=== PATIENT | female | born 1990 | race African-American/Black ===

== ENCOUNTER 2017-09-04 06:40 | Day surgery (SDC) | payer MEDICAID ==
[~2017-09-04] VITALS: Ht 167.6 cm; Wt 93.2 kg
[~2017-09-04 06:40] MED LIST: MOXIFLOXACIN HCL 0.5% 3 ML OPHTHALMIC SOLUTION ONE; RINGERS SOLUTION,LACTATED 500 ML IV ONE
[2017-09-04] MEDS: MOXIFLOXACIN HCL 0.5% 3 ML OPHTHALMIC SOLUTION OD SCH ×3 (07:21→07:31)
== END 2017-09-04 09:05 | disposition home or self-care (01) ==
LOC: SURGERY 06:40
PROVIDERS: ATTEND Ophthalmology
DX: H11.051 Peripheral pterygium, progressive, right eye (principal); Z53.8 Procedure and treatment not carried out for other reasons; Z88.3 Allergy status to other anti-infective agents; Z91.013 Allergy to seafood; Z87.891 Personal history of nicotine dependence; Z72.89 Other problems related to lifestyle; Z98.890 Other specified postprocedural states
CPT/HCPCS: 84703; J7120

== ENCOUNTER 2017-10-30 06:33 | Day surgery (SDC) | payer MEDICAID ==
[~2017-10-30] VITALS: Ht 170.2 cm; Wt 93.2 kg
[~2017-10-30 06:33] MED LIST changes: -MOXIFLOXACIN HCL 0.5% 3 ML OPHTHALMIC SOLUTION ONE
[2017-10-30] MEDS ORDERED: MIDAZOLAM HCL 2 MG/2 ML VIAL IVP ONE (06:34)
[2017-10-30] MEDS ORDERED: FentaNYL CITRATE-PF 100 MCG/2 ML VIAL IVP ONE (06:34)
[2017-10-30] MEDS ORDERED: RINGERS SOLUTION,LACTATED 500 ML IV ONE (06:43)
[2017-10-30] MEDS ORDERED: MOXIFLOXACIN HCL 0.5% 3 ML OPHTHALMIC SOLUTION ONE (06:44)
[2017-10-30] MEDS: MOXIFLOXACIN HCL 0.5% 3 ML OPHTHALMIC SOLUTION OD SCH ×3 (07:30→07:39)
[2017-10-30] MEDS ORDERED: MitoMYcin 0.2 MG/VIAL KIT FOR OPHTHALMIC USE OD ONE (07:30)
[2017-10-30] MEDS ORDERED: MethylPREDNISolone SOD SUCC 40 MG/ML VIAL ONE (08:59)
[2017-10-30] MEDS ORDERED: SOD BORATE/BORIC AC/WATER/NACL 118 ML BOTTLE OD ONE (09:00)
[2017-10-30] MEDS ORDERED: LIDOCAINE HCL 2%/EPI 1:200,000/PF 20 ML VIAL ONE (09:00)
[2017-10-30] MEDS ORDERED: NEOMYCIN/POLYMYXIN B/DEXAMETH 3.5 GM OPHTHALMIC OINTMENT ONE (09:00)
[2017-10-30] MEDS ORDERED: TETRACAINE HCL VISCOUS 0.5% 0.6 ML OPHTHALMIC SOLUTION ONE (09:00)
[2017-10-30] MEDS ORDERED: BUPIVACAINE HCL/PF 0.75% 10 ML VIAL ONE (09:01)
[2017-10-30] MEDS ORDERED: SODIUM CHLORIDE 0.9% 10 ML ONE (09:02)
[2017-10-30] MEDS ORDERED: TETRACAINE HCL/PF 0.5% 4 ML OPHTHALMIC SOLUTION ONE (09:28)
[2017-10-30] MEDS ORDERED: ACETAMINOPHEN 1000 MG/ISO-OSM 100 ML IV ONE (10:10)
[2017-10-30] MEDS ORDERED: OxyCODONE HCL/ACETAMINOPHEN 10-325 MG TABLET PO ONE (11:00)
== END 2017-10-30 11:15 | disposition home or self-care (01) ==
LOC: SURGERY 06:33
PROVIDERS: ATTEND Ophthalmology
DX: H11.051 Peripheral pterygium, progressive, right eye (principal); E66.9 Obesity, unspecified; Z72.89 Other problems related to lifestyle; Z91.013 Allergy to seafood; Z68.32 Body mass index [BMI] 32.0-32.9, adult; Z88.3 Allergy status to other anti-infective agents; Z87.891 Personal history of nicotine dependence; Z98.890 Other specified postprocedural states
CPT/HCPCS: 65426; 84703; 88304; J0131; J0690; J2250; J3010; J3490; J7120; J2920

== ENCOUNTER 2024-03-04 17:37 | Emergency (ER) | payer MEDICAID, OTHER ==
[~2024-03-04] VITALS: Ht 167.6 cm; Wt 104.5 kg
[2024-03-04] MEDS ORDERED: ETON68IM4 SD (17:46)
[2024-03-04] MEDS: LIDOCAINE 1% 10 ML VIAL ID ONE (19:20)
[2024-03-04] MEDS: BACITRACIN 0.9 GM PACKET OINTMENT TP ONE (19:52)
[2024-03-04 20:23] VITALS: BP 119/75; PULSE 69; RESP 18; TEMP 98.3; O2SAT 99
== END 2024-03-04 20:35 | disposition home or self-care (01) ==
LOC: EMS 17:37
DX: S61.211A Laceration without foreign body of left index finger without damage to nail, initial encounter (principal); F17.210 Nicotine dependence, cigarettes, uncomplicated; Z88.8 Allergy status to other drugs, medicaments and biological substances; Z91.041 Radiographic dye allergy status; Z91.013 Allergy to seafood; W26.0XXA Contact with knife, initial encounter; Y93.89 Activity, other specified; Y92.89 Other specified places as the place of occurrence of the external cause; Y99.8 Other external cause status
CPT/HCPCS: 99282; 12002; J3490

== ENCOUNTER → 2024-12-13 | Emergency (ER) | payer OTHER ==
[~2024-12-13] VITALS: Ht 170.2 cm; Wt 104.5 kg
[~2024-12-13] MED LIST changes: +ETON68IM4 SD; -RINGERS SOLUTION,LACTATED 500 ML IV ONE
[2024-12-13 15:28] VITALS: BP 144/91; PULSE 72; RESP 18; TEMP 98.2; O2SAT 99
== END | disposition left against medical advice (07) ==
LOC: EMS 15:20
DX: M79.89 Other specified soft tissue disorders (principal); Z53.21 Procedure and treatment not carried out due to patient leaving prior to being seen by health care provider